=== PATIENT | female | born 1985 | race Asian ===

== ENCOUNTER 2016-11-24 14:17 | Emergency (ER) | payer OTHER ==
[~2016-11-24] VITALS: Wt 58.5 kg
[~2016-11-24 14:17] MED LIST: ALPR0.5T6 PO; CIPR500T4 PO; IBUP-1542 PO
[2016-11-24 15:46] LABS: URINE BLOOD (Dip) POC Trace-intact (NEGATIVE)
--- NOTE | 2016-11-24 15:50 | RADRPT ---
PROCEDURE: XR Chest. CLINICAL INDICATION: Shortness of breath. TECHNIQUE: Single frontal view. COMPARISON: None. FINDINGS: There is a small calcified granuloma at the right lung base. The lungs are otherwise clear. The heart size is normal. There is no pleural effusion. There is no pneumothorax. IMPRESSION: 1. Small calcified granuloma at the right lung base. 2. Otherwise normal chest x-ray. RPTAT: QQ .Chito Downs MD, MD Date Time Electronically viewed and signed by .Chito Downs MD, MD on 11/24/2016 15:50 .R/
[2016-11-24] MEDS ORDERED: IBUP-1542 PO (16:05)
[2016-11-24] MEDS ORDERED: LORA-441 PO (16:05)
--- NOTE | 2016-11-24 16:19 | ERD ---
ER Documentation Chief Complaint Date/Time DATE: 11/24/16 TIME: 16:08 Chief Complaint SOB X1 MOPNTH, NO COUGH, HEADACHE REPORTED HPI Patient is a 31-year-old female brought in by her complaining of shortness of breath for 1 month. Last episode was yesterday when she got startled by loud noise. Patient also complains of chronic, intermittent headache for the past year. Patient addressed it to her PCP but no imaging was done and also complains of dizziness. Denies any recent history of fever, cough , nausea, vomiting, paresthesia, or paresis. Denies any swelling in extremities. Patient denies smoking or drinking alcohol. No recent travel outside the country. Does not take any medications. No medical, surgical or family history. ROS All systems reviewed and are negative except as per history of present illness. Medications Home Meds Active Scripts Lorazepam* (Ativan*) 0.5 Mg Tablet, 0.5 MG PO Q8H Y for ANXIETY, #10 TAB Prov:BRITTANY MATAMOROS 11/24/16 Ibuprofen* (Motrin*) 600 Mg Tab, 600 MG PO Q6H Y for PAIN AND OR ELEVATED TEMP, #30 TAB Prov:BRITTANY MATAMOROS 11/24/16 Alprazolam* (Alprazolam*) 0.5 Mg Tablet, 0.5 MG PO Q8H Y for ANXIETY, #14 TAB Prov:SHEREEN BAILEY MD 03/12/15 Ibuprofen* (Motrin*) 600 Mg Tab, 600 MG PO Q6 Y for PAIN, #30 TAB Prov:SHEREEN BAILEY MD 03/12/15 Ciprofloxacin Hcl* (Ciprofloxacin Hcl*) 500 Mg Tablet, 500 MG PO BID for 7 Days , TAB Prov:SHEREEN BAILEY MD 03/12/15 Allergies Allergies: Coded Allergies: No Known Allergy (Unverified , 03/08/13) PMhx/Soc History of Surgery: No Anesthesia Reaction: No Hx Neurological Disorder: No Hx Respiratory Disorders: No Hx Cardiac Disorders: No Hx Psychiatric Problems: No Hx Miscellaneous Medical Probl: No Hx Alcohol Use: No Hx Substance Use: No Hx Tobacco Use: No Physical Exam Vitals Vital Signs Date Time Temp Pulse Resp B/P Pulse Ox O2 Delivery O2 Flow Rate FiO2 11/24/16 14:22 99.8 81 18 106/61 100 Physical Exam Physical Exam CONST: Well-developed, well-nourished, in no acute distress. Nontoxic in appearance. HEENT: Atraumatic. Normal Conjunctiva. EOM intact. TM intact. External ear is normal. Clear oropharnyx without erythema. No Uvular deviation. Moist mucous membranes. Supple neck. No meningismus. No submandibular induration. RESP: Clear to auscultation bilaterally. No wheezing. CARDIO: Regular rate and rhythm, no murmurs. ABD: Soft, non tender, non distended. Normal bowel sounds. No McBurney's point tenderness. No guarding or rigidity. No peritoneal signs. SKIN: Papular rashes on the elbow area. no erythema. BACK: No midline or flank tenderness. EXT: No cyanosis or edema. Distal pulses equal and bilateral. NEURO: Awake and alert, appropriate for age Results 24 hrs Laboratory Tests Test 11/24/16 15:44 Bedside Urine Blood Trace-intact Bedside Urine Glucose (UA) Negative Bedside Urine Ketones (LAB) Negative Bedside Urine Leukocyte Esterase (L Negative Bedside Urine Nitrite (LAB) Negative Bedside Urine Protein (LAB) Negative Bedside Urine pH (LAB) 7.0 Patient: DANNA MAYA : 1985 Age: 31 Sex: F MR #: [id number] DOS: 11/24/16 0000 Ordering MD: BRITTANY MATAMOROS NP Location: [facility] Room/Bed: PROCEDURE: XR Chest. CLINICAL INDICATION: Shortness of breath. TECHNIQUE: Single frontal view. COMPARISON: None. FINDINGS: There is a small calcified granuloma at the right lung base. The lungs are otherwise clear. The heart size is normal. There is no pleural effusion. There is no pneumothorax. IMPRESSION: 1. Small calcified granuloma at the right lung base. 2. Otherwise normal chest x-ray. RPTAT: QQ .Chito Downs MD, MD Date Time Electronically viewed and signed by .Chito Downs MD, MD on 11/24/2016 15:50 Procedures/MDM EMERGENCY DEPARTMENT COURSE/MEDICAL DECISION MAKING This is a 31-year-old female who comes to the emergency room complaining of shortness of breath for 1 month accompanied by chronic, intermittent headache and dizziness. Respiratory and cardiac exam are unremarkable. No pedal edema noted. Patient appears nontoxic and is in no acute respiratory distress. Patient is saturating 100% on room air. Lab results reviewed and showed no significant acute abnormalities. Chest x-ray was done and was interpreted by a radiologist. Results shows small calcified granuloma in the right lung base, otherwise normal chest x-ray. Urinalysis lab result is unremarkable. I believe her shortness of breath is caused by anxiety. Case was discussed with Dr. Mcneal and and he agreed that the patient is stable to be discharged. EKG read by Dr. Russell: Rate/Rhythm: Normal rate at 85 Intervals: Normal Impression: No evidence of ischemia or arrhythmia My primary diagnosis is headache. Secondary diagnosis are anxiety Differential diagnoses considered, included but not limited to congestive heart failure, migraine, pneumonia, bronchitis, influenza, upper respiratory infection , asthma, pharyngitis, peritonsillar abscess, otitis media, otitis externa.. Pt is hemodynamically stable upon reassessment. The patient was discharged for outpatient management with a prescription for Ativan and ibuprofen. The patient was advised to followup with their PMD in 1-2 days and to return to the Emergency Department if there are any new or worsening symptoms. The patient understood and agreed with the diagnosis, treatment and plan. Patient is stable for discharge at this time. Departure Diagnosis: Primary Impression: Headache Headache type: unspecified Headache chronicity pattern: unspecified pattern Intractability: intractable Qualified Code: R51 - Intractable headache, unspecified chronicity pattern, unspecified headache type Additional Impression: Anxiety Condition: Stable Patient Instructions: Your Body's Response to Anxiety, Self-Care for Headaches Additional Instructions: Follow-up with your primary care physician in 1-2 days. Return to the emergency department immediately should you have any new or worsening symptoms, uncontrolled fevers, or other unexplained symptoms. Take all medications as directed. BRITTANY MATAMOROS Nov 24, 2016 16:18
== END 2016-11-24 16:16 | disposition home or self-care (01) ==
LOC: FTE 14:17
DX: R51 Headache (principal); F41.9 Anxiety disorder, unspecified
CPT/HCPCS: 71010; 81003; Z7502; 93005